=== PATIENT | female | born 1990 | race Caucasian/White ===

== ENCOUNTER 2016-08-28 19:16 | Emergency (ER) | payer OTHER ==
--- NOTE | ~2016-08-28 | ER ---
PATIENT'S NAME: MARY [facility] AGE: 25 Y [address] ROOM: [place] [address] LOCATION: [facility] ADMIT DATE: 08/28/2016 ER/Outpatient Report DISCHARGE DATE: 08/28/2016 FAMILY PHYSICIAN: Yefri Crook MD ATTENDING PHYSICIAN: Gigi Sequeira Time of Arrival: 1916 hours. Time of Evaluation: 1930 hours. CHIEF COMPLAINT: Finger laceration. HISTORY OF PRESENT ILLNESS: This is a 25-year-old female, who presents to the ER, who states approximately 30 minutes prior to arrival, she cut her left middle finger with a knife. The patient states she was at work when this occurred. She states that she is not up-to-date on her tetanus shot and she denies any other problems at this time. ALLERGIES: LAMICTAL. MEDICATIONS: Please see medication list nurse's notes. PAST MEDICAL HISTORY: 1. Asthma. 2. Latent TB. 3. Chronic urinary tract infections. 4. Depression. 5. Anxiety. 6. Bipolar. 7. Multiple ear surgeries. SOCIAL HISTORY: She does drink alcohol once a month. Denies any smoking use. REVIEW OF SYSTEMS: CONSTITUTIONAL: Denies any change in weight or fatigue. MUSCULOSKELETAL: No weakness or myalgias. SKIN: Has a distal left middle finger laceration. PHYSICAL EXAMINATION: VITAL SIGNS: Height 5 feet and 4 inches stated, weight 117.9 kg taken, blood pressure is 168/86, pulse 107, respirations 16, temperature 98.6 degrees tympanically, and saturations 98% on room air. [place] Coma Score is 15. PATIENT'S NAME: MARY [facility] AGE: 25 Y [address] ROOM: [place], [place] [address] LOCATION: [facility] ADMIT DATE: 08/28/2016 ER/Outpatient Report DISCHARGE DATE: 08/28/2016 FAMILY PHYSICIAN: Yefri Crook MD ATTENDING PHYSICIAN: Gigi Sequeira GENERAL: Alert, calm, well-developed female, in no acute distress. EXTREMITIES: No clubbing or cyanosis. She does have full range of motion of all of her limbs. SKIN: She has a 0.5 cm flapped skin avulsion noted to the distal aspect of her left middle finger. It is not actively bleeding at this time. LABORATORY DATA AND X-RAYS: None were done. IMPRESSION: A 0.5 cm flap-like skin avulsion to the distal left middle finger. ASSESSMENT AND PLAN: I did cleanse the area with normal saline and I tacked the skin down with Dermabond skin glue. The patient did tolerate this well. We did update her on her tetanus shot as well. We will dismiss her to home with a skin glue handout. She may take Tylenol or ibuprofen as needed. Follow up with her primary care physician if needed. The patient understands and agrees with care. IDALIA HEAD PA-C FOR MD KAYA AGARWAL/gaurav /[id number] d: 08/29/168 t: 09/04/16 0922, OUTPATIENT REPORT
== END 2016-08-28 19:45 | disposition disaster alternative care site (69) ==
LOC: GACC 19:16
PROC: 0HQGXZZ Repair Left Hand Skin, External Approach (ICD-10-PCS; principal; 2016-08-28)
DX: S61.213A Laceration without foreign body of left middle finger without damage to nail, initial encounter (principal); Z23 Encounter for immunization; J45.909 Unspecified asthma, uncomplicated; F31.9 Bipolar disorder, unspecified; Z88.8 Allergy status to other drugs, medicaments and biological substances; Z79.899 Other long term (current) drug therapy; W26.0XXA Contact with knife, initial encounter